=== PATIENT | female | born 1970 | race African-American/Black ===

== ENCOUNTER 2016-12-11 00:17 | Emergency (ER) | payer MEDICARE ==
[~2016-12-11] VITALS: Ht 167.6 cm; Wt 125.4 kg
[2016-12-11] MEDS ORDERED: LOSARTAN POT50 MG PO (01:58)
[2016-12-11] MEDS ORDERED: VICTOZA18 MG/3 ML SC (01:58)
[2016-12-11] MEDS ORDERED: HUMALOG100 UNIT/M SC (01:59)
[2016-12-11] MEDS ORDERED: BISOPROLOL PO (02:00)
[2016-12-11] MEDS ORDERED: LORTAB 10-325 M1 TAB PO (02:10)
[2016-12-11 02:29] VITALS: BP 183/99
== END 2016-12-11 02:45 | disposition home or self-care (01) ==
LOC: ED 00:17
DX: L02.12 Furuncle of neck (principal); E11.9 Type 2 diabetes mellitus without complications; I10 Essential (primary) hypertension; I25.2 Old myocardial infarction; Z95.5 Presence of coronary angioplasty implant and graft

== ENCOUNTER 2016-12-17 00:43 | Inpatient (IN) | payer MEDICARE ==
[~2016-12-17] VITALS: Ht 167.6 cm; Wt 126.0 kg
[~2016-12-17 00:43] MED LIST: BISOPROLOL PO; HUMALOG100 UNIT/M SC; LORTAB 10-325 M1 TAB PO; LOSARTAN POT50 MG PO; VICTOZA18 MG/3 ML SC
[2016-12-17 02:31] LABS: HEMOGLOBIN 11.3 g/dl (12.0-16.0); IMMATURE GRANULOCYTES 0.8 % (0.0-1.0); MEAN CORPUSCULAR HGB 28.3 pG CALC (26.0-32.0); MEAN CORPUSCULAR HGB CONC 33.2 g/L CALC (32.0-36.0); NEUT# 12.25 thou/uL (2.00-7.15); RED CELL DISTRI WIDTH 13.9 % (11.5-15.5)
[2016-12-17 02:37] LABS: ALBUMIN 3.1 g/dL (3.2-5.0); BILIRUBIN, TOTAL 0.4 mg/dL (0.0-1.4); CALCIUM 9.3 mg/dL (8.4-10.2); CREATININE 1.4 mg/dL (0.5-1.0); POTASSIUM 4.1 mmol/l (3.5-5.1); TOTAL PROTEIN 6.9 g/dL (6.3-8.2)
[2016-12-17 05:28] VITALS: BP 123/60
[2016-12-17 07:48] VITALS: BP 150/66
[2016-12-17 10:29] LABS: CHOLESTEROL HDL RATIO 6.3 (<4.4 (CALC)); MAGNESIUM 1.5 mg/dL (1.6-2.3)
[2016-12-17] MEDS ORDERED: GABAPENTIN800 MG PO (15:39)
[2016-12-17] MEDS ORDERED: TOPAMAX50 M1 PO (15:46)
[2016-12-17] MEDS ORDERED: KLONOPIN1 MG PO (15:48)
[2016-12-17] MEDS ORDERED: AMBIEN5 MG PO (15:50)
[2016-12-17] MEDS ORDERED: SEROQUEL100 MG PO (15:54)
[2016-12-17] MEDS ORDERED: CLOPIDOGREL75 MG PO (15:56)
[2016-12-17] MEDS ORDERED: CLONIDINE0.3 MG PO (16:03)
[2016-12-17] MEDS ORDERED: MOTRIN800 MG PO (16:07)
[2016-12-17] MEDS ORDERED: BACTRIM DS1 TAB PO (16:12)
[2016-12-17] MEDS ORDERED: LOSARTAN POT50 MG PO (16:14)
[2016-12-17 16:27] VITALS: BP 164/50
[2016-12-17] MEDS ORDERED: BISOPROL FUM5 MG PO (16:27)
[2016-12-17 19:07] VITALS: BP 160/70
[2016-12-18 04:10] VITALS: BP 135/74
[2016-12-18 05:54] LABS: HEMATOCRIT 31.4 % (37.0-47.0); HEMOGLOBIN 10.4 g/dl (12.0-16.0); IMMATURE GRANULOCYTES 1.3 % (0.0-1.0); MEAN CORPUSCULAR HGB 28.5 pG CALC (26.0-32.0); MEAN CORPUSCULAR HGB CONC 33.1 g/L CALC (32.0-36.0); NEUT# 9.3 thou/uL (2.00-7.15); RED BLOOD COUNT 3.65 mill/uL (4.20-5.60); RED CELL DISTRI WIDTH 14.2 % (11.5-15.5)
[2016-12-18 05:57] LABS: BUN 8 mg/dL (7-17); BUN/CREATININE RATIO 10 (12-20 (CALC)); CALCIUM 8.7 mg/dL (8.4-10.2); CARBON DIOXIDE 23 mmol/l (22-30); CHLORIDE 106 mmol/l (95-108); CREATININE 0.8 mg/dL (0.5-1.0); GFR > 60 ML/MIN (>=60 (CALC)); GFR FOR AFR.AMER. > 60 ML/MIN (>=60 (CALC)); GLUCOSE 221 mg/dL (65-105); MAGNESIUM 1.4 mg/dL (1.6-2.3); SODIUM 138 mmol/l (137-146)
[2016-12-18 05:58] LABS: ANION GAP 13 (6-22 (CALC)); POTASSIUM 4.2 mmol/l (3.5-5.1)
[2016-12-18 07:50] VITALS: BP 155/77
[2016-12-18 16:00] VITALS: BP 160/63
[2016-12-18 19:50] VITALS: BP 172/88
[2016-12-19 05:00] VITALS: BP 155/74
[2016-12-19 07:51] VITALS: BP 176/90
[2016-12-19 09:15] LABS: HEMATOCRIT 33.6 % (37.0-47.0); MEAN CELL VOLUME 86.8 fL CALC (80.0-100.0); MEAN CORPUSCULAR HGB 28.4 pG CALC (26.0-32.0); MEAN CORPUSCULAR HGB CONC 32.7 g/L CALC (32.0-36.0); RED BLOOD COUNT 3.87 mill/uL (4.20-5.60); RED CELL DISTRI WIDTH 14.1 % (11.5-15.5)
[2016-12-19 09:31] LABS: ANION GAP 11 (6-22 (CALC)); BUN 9 mg/dL (7-17); BUN/CREATININE RATIO 13 (12-20 (CALC)); CALCIUM 9.2 mg/dL (8.4-10.2); CARBON DIOXIDE 26 mmol/l (22-30); CHLORIDE 105 mmol/l (95-108); CREATININE 0.7 mg/dL (0.5-1.0); GFR > 60 ML/MIN (>=60 (CALC)); GFR FOR AFR.AMER. > 60 ML/MIN (>=60 (CALC)); GLUCOSE 293 mg/dL (65-105); POTASSIUM 4.5 mmol/l (3.5-5.1); SODIUM 137 mmol/l (137-146)
[2016-12-19 15:25] VITALS: BP 165/85
[2016-12-20 00:49] VITALS: BP 160/88
[2016-12-20 04:10] VITALS: BP 158/88
[2016-12-20 06:05] LABS: HEMATOCRIT 34.4 % (37.0-47.0); HEMOGLOBIN 10.9 g/dl (12.0-16.0); IMMATURE GRANULOCYTES 2.2 % (0.0-1.0); MEAN CELL VOLUME 87.5 fL CALC (80.0-100.0); MEAN CORPUSCULAR HGB 27.7 pG CALC (26.0-32.0); MEAN CORPUSCULAR HGB CONC 31.7 g/L CALC (32.0-36.0); NEUT# 5.08 thou/uL (2.00-7.15); RED BLOOD COUNT 3.93 mill/uL (4.20-5.60); RED CELL DISTRI WIDTH 13.9 % (11.5-15.5)
[2016-12-20 06:06] LABS: ALBUMIN 2.9 g/dL (3.2-5.0); ALKALINE PHOSPHATASE 138 u/l (38-126); ANION GAP 15 (6-22 (CALC)); BILIRUBIN, TOTAL 0.3 mg/dL (0.0-1.4); BUN 10 mg/dL (7-17); BUN/CREATININE RATIO 13 (12-20 (CALC)); CALCIUM 9.5 mg/dL (8.4-10.2); CARBON DIOXIDE 24 mmol/l (22-30); CHLORIDE 104 mmol/l (95-108); CREATININE 0.7 mg/dL (0.5-1.0); GFR > 60 ML/MIN (>=60 (CALC)); GFR FOR AFR.AMER. > 60 ML/MIN (>=60 (CALC)); GLUCOSE 244 mg/dL (65-105); POTASSIUM 4.8 mmol/l (3.5-5.1); SGOT/AST 12 u/l (14-36); SGPT/ALT 22 u/l (9-52); SODIUM 139 mmol/l (137-146); TOTAL PROTEIN 6.7 g/dL (6.3-8.2)
[2016-12-20 08:12] VITALS: BP 168/80
[2016-12-20 16:11] VITALS: BP 176/86
[2016-12-20 19:06] VITALS: BP 146/78
[2016-12-21] VITALS (7 sets, daily range): BP systolic 121–180; BP diastolic 60–95
[2016-12-21 05:23] LABS: HEMATOCRIT 33.1 % (37.0-47.0); HEMOGLOBIN 10.7 g/dl (12.0-16.0); IMMATURE GRANULOCYTES 2.1 % (0.0-1.0); MEAN CELL VOLUME 87.6 fL CALC (80.0-100.0); MEAN CORPUSCULAR HGB 28.3 pG CALC (26.0-32.0); MEAN CORPUSCULAR HGB CONC 32.3 g/L CALC (32.0-36.0); NEUT# 3.84 thou/uL (2.00-7.15); RED BLOOD COUNT 3.78 mill/uL (4.20-5.60)
[2016-12-21 05:34] LABS: ANION GAP 13 (6-22 (CALC)); BUN 14 mg/dL (7-17); BUN/CREATININE RATIO 17 (12-20 (CALC)); CALCIUM 9.3 mg/dL (8.4-10.2); CARBON DIOXIDE 26 mmol/l (22-30); CHLORIDE 105 mmol/l (95-108); CREATININE 0.8 mg/dL (0.5-1.0); GFR > 60 ML/MIN (>=60 (CALC)); GFR FOR AFR.AMER. > 60 ML/MIN (>=60 (CALC)); GLUCOSE 248 mg/dL (65-105); POTASSIUM 4.2 mmol/l (3.5-5.1); SODIUM 140 mmol/l (137-146)
[2016-12-22 03:25] VITALS: BP 135/80
[2016-12-22 06:11] LABS: HEMATOCRIT 34.8 % (37.0-47.0); HEMOGLOBIN 11.2 g/dl (12.0-16.0); IMMATURE GRANULOCYTES 1.9 % (0.0-1.0); MEAN CORPUSCULAR HGB CONC 32.2 g/L CALC (32.0-36.0); NEUT# 3.78 thou/uL (2.00-7.15); RED CELL DISTRI WIDTH 13.8 % (11.5-15.5)
[2016-12-22 06:29] LABS: ANION GAP 13 (6-22 (CALC)); BUN 12 mg/dL (7-17); BUN/CREATININE RATIO 19 (12-20 (CALC)); CALCIUM 9.4 mg/dL (8.4-10.2); CARBON DIOXIDE 27 mmol/l (22-30); CHLORIDE 105 mmol/l (95-108); CREATININE 0.7 mg/dL (0.5-1.0); GFR > 60 ML/MIN (>=60 (CALC)); GFR FOR AFR.AMER. > 60 ML/MIN (>=60 (CALC)); GLUCOSE 200 mg/dL (65-105); MAGNESIUM 1.6 mg/dL (1.6-2.3); POTASSIUM 4.3 mmol/l (3.5-5.1); SODIUM 141 mmol/l (137-146)
[2016-12-22 07:39] VITALS: BP 182/98
[2016-12-22 10:04] VITALS: BP 150/80
[2016-12-22 16:00] VITALS: BP 160/96
[2016-12-22 19:30] VITALS: BP 140/80
[2016-12-22 23:55] VITALS: BP 150/68
[2016-12-23 03:47] VITALS: BP 150/80
[2016-12-23 06:28] LABS: HEMATOCRIT 31.9 % (37.0-47.0); HEMOGLOBIN 10.3 g/dl (12.0-16.0); IMMATURE GRANULOCYTES 1.4 % (0.0-1.0); MEAN CELL VOLUME 87.6 fL CALC (80.0-100.0); MEAN CORPUSCULAR HGB 28.3 pG CALC (26.0-32.0); MEAN CORPUSCULAR HGB CONC 32.3 g/L CALC (32.0-36.0); NEUT# 4.26 thou/uL (2.00-7.15); RED BLOOD COUNT 3.64 mill/uL (4.20-5.60)
[2016-12-23 06:50] LABS: ANION GAP 13 (6-22 (CALC)); BUN 14 mg/dL (7-17); BUN/CREATININE RATIO 21 (12-20 (CALC)); CARBON DIOXIDE 27 mmol/l (22-30); CHLORIDE 105 mmol/l (95-108); CREATININE 0.7 mg/dL (0.5-1.0); GFR > 60 ML/MIN (>=60 (CALC)); GFR FOR AFR.AMER. > 60 ML/MIN (>=60 (CALC)); GLUCOSE 267 mg/dL (65-105); MAGNESIUM 1.4 mg/dL (1.6-2.3); POTASSIUM 4.1 mmol/l (3.5-5.1); SODIUM 141 mmol/l (137-146)
[2016-12-23 07:44] VITALS: BP 144/72
[2016-12-23 07:53] VITALS: BP 144/72
[2016-12-23] MEDS ORDERED: HYDROCO/APAP1 TA9 PO (10:21)
[2016-12-23] MEDS ORDERED: LYPHOCIN1 GM IV (10:21)
[2016-12-23] MEDS ORDERED: catapres PO (10:21)
[2016-12-23] MEDS ORDERED: HYDROCHLOROT25 MG PO (10:21)
[2016-12-23] MEDS ORDERED: LEVEMIR100 UNIT/M SC (10:21)
== END 2016-12-23 14:56 | disposition home or self-care (01) | DRG 638 ==
LOC: ED 00:43 → ED-I 01:36 → ED 03:54 → MS2 03:55
PROVIDERS: Emergency Medicine; Internal Medicine; Nurse Practitioner Family; ADMIT Internal Medicine; ATTEND Internal Medicine
PROC: 0H94XZX Drainage of Neck Skin, External Approach, Diagnostic (ICD-10-PCS; principal; 2016-12-17)
PROC: 0H94XZZ Drainage of Neck Skin, External Approach (ICD-10-PCS; 2016-12-17)
PROC: 02HV33Z Insertion of Infusion Device into Superior Vena Cava, Percutaneous Approach (ICD-10-PCS; 2016-12-22)
PROC: B518ZZA Fluoroscopy of Superior Vena Cava, Guidance (ICD-10-PCS; 2016-12-22)
DX: E11.628 Type 2 diabetes mellitus with other skin complications (principal); L02.11 Cutaneous abscess of neck; B95.61 Methicillin susceptible Staphylococcus aureus infection as the cause of diseases classified elsewhere; R78.81 Bacteremia; I10 Essential (primary) hypertension; L03.221 Cellulitis of neck; Z68.41 Body mass index [BMI] 40.0-44.9, adult; E78.5 Hyperlipidemia, unspecified; F32.9 Major depressive disorder, single episode, unspecified; E11.65 Type 2 diabetes mellitus with hyperglycemia; E11.69 Type 2 diabetes mellitus with other specified complication; E66.01 Morbid (severe) obesity due to excess calories; E83.42 Hypomagnesemia; I25.2 Old myocardial infarction; Z95.5 Presence of coronary angioplasty implant and graft; Z79.4 Long term (current) use of insulin; Z91.14 Patient's other noncompliance with medication regimen
CPT/HCPCS: J0692

== ENCOUNTER 2017-02-09 13:35 | Observation (INO) | payer MEDICARE ==
[~2017-02-09] VITALS: Ht 167.6 cm; Wt 129.0 kg
[~2017-02-09 13:35] MED LIST changes: +AMBIEN5 MG PO; +BACTRIM DS1 TAB PO; +BISOPROL FUM5 MG PO; +CLONIDINE0.3 MG PO; +CLOPIDOGREL75 MG PO; +GABAPENTIN800 MG PO; +HYDROCHLOROT25 MG PO; +HYDROCO/APAP1 TA9 PO; +KLONOPIN1 MG PO; +LEVEMIR100 UNIT/M SC; +LYPHOCIN1 GM IV; +MOTRIN800 MG PO; +SEROQUEL100 MG PO; +TOPAMAX50 M1 PO; +catapres PO
--- NOTE | 2017-02-09 13:43 | NUR ---
PT TAKEN STRAIGHT BACK TO ER ROOM 3 FOR AN EKG.
--- NOTE | 2017-02-09 14:00 | NUR ---
PT TRANSFERED TO ER ROOM 10 AFTER EKG. PT REFUSED WC, AMBULATED WITH A STEADY GAIT. PT DROVE SELF TO ER " IS WORKING". PT CHANGED SELF INTO GOWN. MONITORING VS. NURSE @ BEDSIDE.
[2017-02-09 14:20] LABS: HEMATOCRIT 36.7 % (37.0-47.0); IMMATURE GRANULOCYTES 1.2 % (0.0-1.0); MEAN CELL VOLUME 87.8 fL CALC (80.0-100.0); MEAN CORPUSCULAR HGB 28.7 pG CALC (26.0-32.0); MEAN CORPUSCULAR HGB CONC 32.7 g/L CALC (32.0-36.0); NEUT# 7.47 thou/uL (2.00-7.15); RED BLOOD COUNT 4.18 mill/uL (4.20-5.60); RED CELL DISTRI WIDTH 15.9 % (11.5-15.5)
[2017-02-09 14:40] LABS: ALBUMIN 3.5 g/dL (3.2-5.0); ALKALINE PHOSPHATASE 177 u/l (38-126); ANION GAP 13 (6-22 (CALC)); BILIRUBIN, TOTAL 0.6 mg/dL (0.0-1.4); BUN 22 mg/dL (7-17); BUN/CREATININE RATIO 27 (12-20 (CALC)); CARBON DIOXIDE 23 mmol/l (22-30); CHLORIDE 107 mmol/l (95-108); CREATININE 0.8 mg/dL (0.5-1.0); GFR > 60 ML/MIN (>=60 (CALC)); GFR FOR AFR.AMER. > 60 ML/MIN (>=60 (CALC)); GLUCOSE 334 mg/dL (65-105); POTASSIUM 4.6 mmol/l (3.5-5.1); SGOT/AST 20 u/l (14-36); SGPT/ALT 21 u/l (9-52); SODIUM 138 mmol/l (137-146)
[2017-02-09 14:52] LABS: MYOGLOBIN 39 ng/mL (0 - 62)
--- NOTE | 2017-02-09 15:45 | NUR ---
PT STATES SHE IS FEELING MUCH BETTER.
--- NOTE | 2017-02-09 15:46 | NUR ---
SBAR PRINTED TO FLOOR
--- NOTE | 2017-02-09 16:57 | NUR ---
TRIED CALLING REPORT, NO ANSWER
--- NOTE | 2017-02-09 17:00 | NUR ---
REPORT CALLED TO MOISES ABBOTT
--- NOTE | 2017-02-09 17:05 | NUR ---
Admission Note Report Given to: SBAR PRINTED TO FLOOR Transported by: X Wheelchair Stretcher Transported with: X Nurse Transporter X Patent IV O2 X Warehouse Lead
[2017-02-09 17:15] VITALS: BP 191/95
[2017-02-09] MEDS ORDERED: TRESIBA FL100 UNIT/M SC (17:51)
[2017-02-09] MEDS ORDERED: NOVOLOG100 UNIT/M SC (17:53)
--- NOTE | 2017-02-09 17:59 | NUR ---
PT ARRIVED TO FLOOR @ 1710 VIA WHEELCHAIR ACCOMPANIED BY ED STAFF. PT AMBULATING IN ROOM. STATES "GIRL JUST TELL ME IM GONNA GET DINNER." REPORTS MILD DULL PRESSURE TO LEFT SIDE OF CHEST. REPORTS SEVERE HEADACHE, 8 ON SCALE OF 0-10. PLAN OF CARE DISCUSSED. PT ORIENTED TO ROOM AND EQUIPMENT. REPORTING OF CONCERNS ENCOURAGED. BP 191/95. BRENT TRUJILLO NOTIFIED. NEW ORDERS AWAITING [facility] VERIFICATION. CALL LIGHT REVIEWED AND IN REACH. PT STATES UNDERSTANDING.
[2017-02-09 18:46] VITALS: BP 175/96
[2017-02-09 18:50] LABS: MAGNESIUM 1.7 mg/dL (1.6-2.3)
[2017-02-09 19:28] VITALS: BP 175/96
[2017-02-09 19:30] VITALS: BP 166/92
--- NOTE | 2017-02-09 19:30 | NUR ---
PATIENT RESTING IN BED-AWAKE ALERT AND ORIENTEDX3. BP IS DOWN AFTER RECIEVING APRESOLINE ON DAYSHIFT. TELE MONITORING DEVICE IN PLACE. HEP LOCK TO RIGHT AC INTACT AND APPEARS HEALTHY AT THIS TIME. CALL LIGHT IN REACH. WILL CONT TO MONITOR.
[2017-02-09 21:25] VITALS: BP 134/73
--- NOTE | 2017-02-09 23:54 | NUR ---
PATIENT APPEARS SLEEPING AT THIS TIME. CALL LIGHT IN REACH. WILL CONT TO MONITOR.
[2017-02-10] VITALS: BP 142/80
--- NOTE | 2017-02-10 04:00 | NUR ---
APPEARS SLEEPING AT THIS TIME. CALL LIGHT IN REACH. WILL CONT TO MONITOR.
[2017-02-10 05:26] VITALS: BP 145/85
[2017-02-10 06:37] LABS: HEMATOCRIT 34.7 % (37.0-47.0); HEMOGLOBIN 11.2 g/dl (12.0-16.0); MEAN CELL VOLUME 87.6 fL CALC (80.0-100.0); MEAN CORPUSCULAR HGB 28.3 pG CALC (26.0-32.0); MEAN CORPUSCULAR HGB CONC 32.3 g/L CALC (32.0-36.0); NEUT# 7.08 thou/uL (2.00-7.15); RED BLOOD COUNT 3.96 mill/uL (4.20-5.60); RED CELL DISTRI WIDTH 15.9 % (11.5-15.5)
[2017-02-10 06:56] LABS: ANION GAP 13 (6-22 (CALC)); BUN 25 mg/dL (7-17); BUN/CREATININE RATIO 26 (12-20 (CALC)); CALCIUM 9.2 mg/dL (8.4-10.2); CARBON DIOXIDE 23 mmol/l (22-30); CHLORIDE 107 mmol/l (95-108); CREATININE 0.9 mg/dL (0.5-1.0); GFR > 60 ML/MIN (>=60 (CALC)); GFR FOR AFR.AMER. > 60 ML/MIN (>=60 (CALC)); GLUCOSE 255 mg/dL (65-105); MAGNESIUM 1.8 mg/dL (1.6-2.3); POTASSIUM 4.6 mmol/l (3.5-5.1); SODIUM 139 mmol/l (137-146)
--- NOTE | 2017-02-10 07:00 | NUR ---
RECEIVED BEDSIDE REPORT FROM OSCAR DE LEON. RESTING IN BED WITH EYES CLSOED, AWAKENS EASILY. RESPS EVEN AND UNLABORED ON ROOM AIR, TELE MONITOR IN PLACE. DENIES PAIN OR DISCOMFORT. PLAN OF CARE DISCUSSED. SAFETY PRECAUTIONS REINFORCED. BED IN LOWEST POSITION WITH WHEELS LOCKED. CALL LIGHT WITHIN REACH. ENCOURAGED PT TO CALL FOR ANY NEEDS.
[2017-02-10 07:46] VITALS: BP 132/75
[2017-02-10 11:44] VITALS: BP 160/98
--- NOTE | 2017-02-10 12:25 | NUR ---
SITTING IN BED EATING LUNCH. RESPS EVEN AND UNLABORED ON ROOM AIR, TELE MONITOR IN PLACE. MEDICATED WITH TYLENOL PO FOR C/O 9/10 HEADACHE. PO FLUIDS OFFERED. CALL LIGHT WITHIN REACH. WILL CONTINUE TO MONITOR.
[2017-02-10 12:45] LABS: URINE BILIRUBIN - DIPSTICK NEGATIVE (NEGATIVE); URINE BLOOD DIPSTICK NEGATIVE (NEGATIVE); URINE CLARITY CLEAR; URINE COLOR YELLOW; URINE GLUCOSE - DIPSTICK >=1000 mg/dL (NEGATIVE); URINE KETONE NEGATIVE (NEGATIVE); URINE LEUK ESTERASE NEGATIVE (NEGATIVE); URINE NITRITE - DIPSTICK NEGATIVE (Negative); URINE PROTEIN - DIPSTICK Trace mg/dL (NEG-TRACE); URINE SPECIFIC GRAVITY 1.015; URINE UROBILINOGEN - DIPSTICK 0.2 E.U./dL (0.2)
--- NOTE | 2017-02-10 13:25 | NUR ---
DR LINARES IN WITH PT, NEW ORDERS RECEIVED.
[2017-02-10] MEDS ORDERED: HYDROCHLOROT25 MG PO (14:21)
[2017-02-10] MEDS ORDERED: catapres PO (14:21)
[2017-02-10] MEDS ORDERED: LIPITOR40 M1 PO (14:26)
[2017-02-10] MEDS ORDERED: ASPIRIN ADULT L81 M2 PO ×2 (14:27→14:50)
[2017-02-10 14:30] VITALS: BP 160/98
[2017-02-10] MEDS ORDERED: ISOSORBIDE MONO60 MG PO ×2 (14:50→14:52)
[2017-02-10] MEDS ORDERED: LIPITOR80 M1 PO (14:51)
--- NOTE | 2017-02-10 16:37 | NUR ---
Discharge instructions given. Patient verbalizes understanding of same. Discharged in stable condition via Wheelchair to Home with spouse. All belongings sent with pt.
== END 2017-02-10 16:35 | disposition home or self-care (01) ==
LOC: ED 13:35 → ED-I 14:23 → ED 15:31 → MS2 15:32
PROVIDERS: Emergency Medicine; Nurse Practitioner Family; ADMIT Internal Medicine; ATTEND Internal Medicine
DX: R07.89 Other chest pain (principal); I10 Essential (primary) hypertension; E11.65 Type 2 diabetes mellitus with hyperglycemia; F32.9 Major depressive disorder, single episode, unspecified; E78.5 Hyperlipidemia, unspecified; E66.01 Morbid (severe) obesity due to excess calories; I25.2 Old myocardial infarction; Z88.8 Allergy status to other drugs, medicaments and biological substances; Z91.14 Patient's other noncompliance with medication regimen; Z68.42 Body mass index [BMI] 45.0-49.9, adult; Z79.4 Long term (current) use of insulin; Z95.5 Presence of coronary angioplasty implant and graft

== ENCOUNTER 2017-12-15 14:18 | Emergency (ER) | payer MEDICARE, OTHER ==
[~2017-12-15] VITALS: Ht 167.6 cm; Wt 136.0 kg
[~2017-12-15 14:18] MED LIST changes: +ASPIRIN ADULT L81 M2 PO; +ISOSORBIDE MONO60 MG PO; +LIPITOR40 M1 PO; +LIPITOR80 M1 PO; +NOVOLOG100 UNIT/M SC; +TRESIBA FL100 UNIT/M SC
[2017-12-15 15:01] LABS: IMMATURE GRANULOCYTES 0.6 % (0.0-5.0); MEAN CELL VOLUME 88.9 fL CALC (80.0-100.0); MEAN CORPUSCULAR HGB 28.9 pG CALC (26.0-32.0); MEAN CORPUSCULAR HGB CONC 32.5 g/L CALC (32.0-36.0); NEUT# 6.82 thou/uL (2.00-7.15); RED BLOOD COUNT 4.6 mill/uL (4.20-5.60); RED CELL DISTRI WIDTH 14.4 % (11.5-15.5)
[2017-12-15 15:02] LABS: URINE BILIRUBIN - DIPSTICK NEGATIVE (NEGATIVE); URINE BLOOD DIPSTICK TRACE-INTACT (NEGATIVE); URINE COLOR YELLOW; URINE GLUCOSE - DIPSTICK >=1000 mg/dL (NEGATIVE); URINE KETONE NEGATIVE (NEGATIVE); URINE LEUK ESTERASE NEGATIVE (NEGATIVE); URINE NITRITE - DIPSTICK NEGATIVE (Negative); URINE PH 5.5 (4.5-8.0); URINE PROTEIN - DIPSTICK 100 mg/dL (NEG-TRACE); URINE UROBILINOGEN - DIPSTICK 0.2 E.U./dL (0.2)
[2017-12-15 15:03] LABS: HEMATOCRIT 40.9 % (37.0-47.0); HEMOGLOBIN 13.3 g/dl (12.0-16.0); URINE CLARITY CLEAR
[2017-12-15 15:04] LABS: URINE RBC 0-2 RBC/hpf (0-5); URINE SQUAMOUS EPITHELIAL CELL FEW EPI/hpf (0-FEW); URINE WBC 0-2 WBC/hpf (0-5)
[2017-12-15 15:16] LABS: ALBUMIN 3.4 g/dL (3.2-5.0); ANION GAP 15 (6-22 (CALC)); BILIRUBIN, TOTAL 0.3 mg/dL (0.0-1.4); BUN 27 mg/dL (7-17); BUN/CREATININE RATIO 27 (12-20 (CALC)); CARBON DIOXIDE 28 mmol/l (22-30); CHLORIDE 95 mmol/l (95-108); GFR 60 ML/MIN (>=60 (CALC)); GFR FOR AFR.AMER. > 60 ML/MIN (>=60 (CALC)); SGOT/AST 21 u/l (14-36); SGPT/ALT 25 u/l (9-52); SODIUM 134 mmol/l (137-146); TOTAL PROTEIN 7.2 g/dL (6.3-8.2)
[2017-12-15 15:28] LABS: ALKALINE PHOSPHATASE 272 u/l (38-126)
[2017-12-15 18:28] VITALS: BP 170/88
== END 2017-12-15 18:28 | disposition home or self-care (01) ==
LOC: ED 14:18
DX: E11.65 Type 2 diabetes mellitus with hyperglycemia (principal); I10 Essential (primary) hypertension; I25.2 Old myocardial infarction; Z79.4 Long term (current) use of insulin; Z91.14 Patient's other noncompliance with medication regimen; Z91.11 Patient's noncompliance with dietary regimen

== ENCOUNTER 2018-10-10 13:05 | Observation (INO) | payer OTHER, MEDICARE ==
[~2018-10-10] VITALS: Ht 167.6 cm; Wt 133.0 kg
[2018-10-10] MEDS ORDERED: ISOSORB MONO20 MG PO (13:26)
[2018-10-10 13:34] LABS: HEMATOCRIT 35.4 % (37.0-47.0); IMMATURE GRANULOCYTES 0.4 % (0.0-5.0); MEAN CELL VOLUME 89.4 fL CALC (80.0-100.0); MEAN CORPUSCULAR HGB 28.3 pG CALC (26.0-32.0); MEAN CORPUSCULAR HGB CONC 31.6 g/L CALC (32.0-36.0); NEUT# 5.1 thou/uL (2.00-7.15); RED BLOOD COUNT 3.96 mill/uL (4.20-5.60); RED CELL DISTRI WIDTH 14.9 % (11.5-15.5)
[2018-10-10 13:40] LABS: HEMOGLOBIN 11.2 g/dl (12.0-16.0)
[2018-10-10 13:54] LABS: ALBUMIN 3.4 g/dL (3.2-5.0); ALKALINE PHOSPHATASE 232 u/l (38-126); AMYLASE 51 u/l (30-110); ANION GAP 13 (6-22 (CALC)); BILIRUBIN, TOTAL 0.3 mg/dL (0.0-1.4); BUN 22 mg/dL (7-17); BUN/CREATININE RATIO 27 (12-20 (CALC)); CARBON DIOXIDE 28 mmol/l (22-30); CHLORIDE 100 mmol/l (95-108); CREATININE 0.8 mg/dL (0.5-1.0); GFR > 60 ML/MIN (>=60 (CALC)); GFR FOR AFR.AMER. > 60 ML/MIN (>=60 (CALC)); LIPASE 116 u/l (23-300); POTASSIUM 3.9 mmol/l (3.5-5.1); SGOT/AST 24 u/l (14-36); SODIUM 137 mmol/l (137-146); TOTAL PROTEIN 7.3 g/dL (6.3-8.2)
[2018-10-10 14:06] LABS: MYOGLOBIN 108 ng/mL (0 - 62)
[2018-10-10 16:58] VITALS: BP 162/81
[2018-10-10 17:44] VITALS: BP 181/82
[2018-10-10] MEDS ORDERED: HUMULIN R500 UNIT/M SC ×2 (18:36)
[2018-10-10 20:36] VITALS: BP 151/74
[2018-10-10 23:23] VITALS: BP 163/63
[2018-10-11 03:32] VITALS: BP 145/66
[2018-10-11 06:15] LABS: CHOLESTEROL HDL RATIO 3.7 (<4.4 (CALC)); MAGNESIUM 1.5 mg/dL (1.6-2.3)
[2018-10-11 07:53] VITALS: BP 159/72
[2018-10-11 11:15] VITALS: BP 167/75
== END 2018-10-11 13:32 | disposition home or self-care (01) | DRG 638 ==
LOC: ED 13:05 → ED-I 14:41 → ED 14:54 → MS2 14:55
PROVIDERS: Emergency Medicine; ADMIT Internal Medicine; ATTEND Internal Medicine
DX: E11.65 Type 2 diabetes mellitus with hyperglycemia (principal); Z68.41 Body mass index [BMI] 40.0-44.9, adult; I10 Essential (primary) hypertension; E11.69 Type 2 diabetes mellitus with other specified complication; E78.5 Hyperlipidemia, unspecified; I25.10 Atherosclerotic heart disease of native coronary artery without angina pectoris; I25.2 Old myocardial infarction; E66.01 Morbid (severe) obesity due to excess calories; T38.3X6A Underdosing of insulin and oral hypoglycemic [antidiabetic] drugs, initial encounter; Z91.128 Patient's intentional underdosing of medication regimen for other reason; Z79.4 Long term (current) use of insulin; Z95.5 Presence of coronary angioplasty implant and graft
CPT/HCPCS: G0378

== ENCOUNTER 2019-05-23 04:56 | Inpatient (IN) | payer OTHER, MEDICARE ==
[2019-05-23] VITALS (11 sets, daily range): BP systolic 151–205; BP diastolic 56–83
[~2019-05-23] VITALS: Ht 167.6 cm; Wt 140.2 kg
[~2019-05-23 04:56] MED LIST changes: +HUMULIN R500 UNIT/M SC; +ISOSORB MONO20 MG PO
[2019-05-23 05:54] LABS: IMMATURE GRANULOCYTES 1.1 % (0.0-5.0); MEAN CORPUSCULAR HGB 24.6 pG CALC (26.0-32.0); MEAN CORPUSCULAR HGB CONC 29.4 g/L CALC (32.0-36.0); NEUT# 6.96 thou/uL (2.00-7.15); RED BLOOD COUNT 3.13 mill/uL (4.20-5.60); RED CELL DISTRI WIDTH 16.6 % (11.5-15.5)
[2019-05-23 06:02] LABS: HEMOGLOBIN 7.7 g/dl (12.0-16.0)
[2019-05-23 06:03] LABS: HEMATOCRIT 26.2 % (37.0-47.0); MEAN CELL VOLUME 83.7 fL CALC (80.0-100.0)
[2019-05-23 06:13] LABS: ALBUMIN 3.1 g/dL (3.2-5.0); ALKALINE PHOSPHATASE 194 u/l (38-126); ANION GAP 9 (6-22 (CALC)); BILIRUBIN, TOTAL 0.3 mg/dL (0.0-1.4); BUN 26 mg/dL (7-17); BUN/CREATININE RATIO 27 (12-20 (CALC)); CARBON DIOXIDE 31 mmol/l (22-30); CHLORIDE 103 mmol/l (95-108); GFR 60 ML/MIN (>=60 (CALC)); GFR FOR AFR.AMER. > 60 ML/MIN (>=60 (CALC)); POTASSIUM 4.6 mmol/l (3.5-5.1); SGOT/AST 40 u/l (14-36); SODIUM 138 mmol/l (137-146); TOTAL PROTEIN 6.8 g/dL (6.3-8.2)
[2019-05-23 06:25] LABS: MYOGLOBIN 63 ng/mL (0 - 62)
[2019-05-23 09:49] LABS: URINE BILIRUBIN - DIPSTICK NEGATIVE (NEGATIVE); URINE BLOOD DIPSTICK TRACE-INTACT (NEGATIVE); URINE COLOR YELLOW; URINE GLUCOSE - DIPSTICK 500 mg/dL (NEGATIVE); URINE KETONE NEGATIVE (NEGATIVE); URINE LEUK ESTERASE NEGATIVE (NEGATIVE); URINE NITRITE - DIPSTICK NEGATIVE (Negative); URINE PH 6.5 (4.5-8.0); URINE PROTEIN - DIPSTICK 30 mg/dL (NEG-TRACE); URINE SPECIFIC GRAVITY 1.015; URINE UROBILINOGEN - DIPSTICK 0.2 E.U./dL (0.2)
[2019-05-23 09:58] LABS: URINE EPITHELIAL CELLS MODERATE EPI/hpf (0-FEW); URINE RBC 0-2 RBC/hpf (0-5)
[2019-05-23 11:27] LABS: CHOLESTEROL HDL RATIO 3.2 (<4.4 (CALC)); MAGNESIUM 1.5 mg/dL (1.6-2.3)
[2019-05-24 01:35] VITALS: BP 145/59
[2019-05-24 05:23] LABS: HEMATOCRIT 30.1 % (37.0-47.0); HEMOGLOBIN 9.4 g/dl (12.0-16.0); IMMATURE GRANULOCYTES 1.8 % (0.0-5.0); MEAN CELL VOLUME 82.2 fL CALC (80.0-100.0); MEAN CORPUSCULAR HGB 25.7 pG CALC (26.0-32.0); MEAN CORPUSCULAR HGB CONC 31.2 g/L CALC (32.0-36.0); NEUT# 13.31 thou/uL (2.00-7.15); RED BLOOD COUNT 3.66 mill/uL (4.20-5.60); RED CELL DISTRI WIDTH 16.1 % (11.5-15.5)
[2019-05-24 05:30] VITALS: BP 156/62
[2019-05-24 05:42] LABS: BUN 30 mg/dL (7-17); BUN/CREATININE RATIO 29 (12-20 (CALC)); CHLORIDE 102 mmol/l (95-108); GFR 60 ML/MIN (>=60 (CALC)); GFR FOR AFR.AMER. > 60 ML/MIN (>=60 (CALC)); MAGNESIUM 1.6 mg/dL (1.6-2.3); SODIUM 134 mmol/l (137-146)
[2019-05-24 05:46] LABS: ANION GAP 13 (6-22 (CALC)); CARBON DIOXIDE 24 mmol/l (22-30)
[2019-05-24 08:00] VITALS: BP 143/71
[2019-05-24 11:01] VITALS: BP 184/73
[2019-05-24 15:35] VITALS: BP 138/60
[2019-05-24] MEDS ORDERED: FERR SULFATE325 MG PO (18:00)
[2019-05-24] MEDS ORDERED: MEDDOSEPAK PO ×2 (18:01)
[2019-05-24] MEDS ORDERED: LEVAQUIN750 MG PO (18:01)
== END 2019-05-24 19:00 | disposition home or self-care (01) | DRG 202 ==
LOC: ED 04:56 → ED-I 05:31 → ED 07:27 → MS2 07:28 → ED-I 07:28 → MS2 09:15
PROVIDERS: Emergency Medicine; Nurse Practitioner Family; ADMIT Internal Medicine; ATTEND Internal Medicine
PROC: 30233N1 Transfusion of Nonautologous Red Blood Cells into Peripheral Vein, Percutaneous Approach (ICD-10-PCS; principal; 2019-05-23)
PROC: 30233N1 Transfusion of Nonautologous Red Blood Cells into Peripheral Vein, Percutaneous Approach (ICD-10-PCS; 2019-05-23)
DX: J40 Bronchitis, not specified as acute or chronic (principal); Z68.43 Body mass index [BMI] 50.0-59.9, adult; D62 Acute posthemorrhagic anemia; I11.0 Hypertensive heart disease with heart failure; I50.9 Heart failure, unspecified; I16.0 Hypertensive urgency; E11.65 Type 2 diabetes mellitus with hyperglycemia; N92.0 Excessive and frequent menstruation with regular cycle; E66.01 Morbid (severe) obesity due to excess calories; G47.33 Obstructive sleep apnea (adult) (pediatric); E78.5 Hyperlipidemia, unspecified; I25.2 Old myocardial infarction; I25.10 Atherosclerotic heart disease of native coronary artery without angina pectoris; Z79.02 Long term (current) use of antithrombotics/antiplatelets; Z79.82 Long term (current) use of aspirin; Z95.5 Presence of coronary angioplasty implant and graft; Z79.4 Long term (current) use of insulin
CPT/HCPCS: J1756; P9016

== ENCOUNTER 2020-01-01 01:45 | Emergency (ER) | payer OTHER, MEDICARE ==
[~2020-01-01] VITALS: Ht 167.6 cm; Wt 100.0 kg
[~2020-01-01 01:45] MED LIST changes: +FERR SULFATE325 MG PO; +LEVAQUIN750 MG PO; +MEDDOSEPAK PO
[2020-01-01] MEDS ORDERED: PERCOCET 5/325M1 TAB PO (04:05)
[2020-01-01 04:32] VITALS: BP 151/84
== END 2020-01-01 04:32 | disposition home or self-care (01) | DRG 948 ==
LOC: ED 01:45
DX: G89.18 Other acute postprocedural pain (principal); E11.9 Type 2 diabetes mellitus without complications; I10 Essential (primary) hypertension; I25.2 Old myocardial infarction; Z95.5 Presence of coronary angioplasty implant and graft; F41.9 Anxiety disorder, unspecified; E66.01 Morbid (severe) obesity due to excess calories; Z79.4 Long term (current) use of insulin; Z90.710 Acquired absence of both cervix and uterus

== ENCOUNTER 2020-12-15 19:14 | Emergency (ER) | payer OTHER, MEDICARE ==
[~2020-12-15] VITALS: Ht 167.6 cm; Wt 131.0 kg
[~2020-12-15 19:14] MED LIST changes: +PERCOCET 5/325M1 TAB PO
[2020-12-15 21:00] LABS: HEMATOCRIT 34.6 % (37.0-47.0); HEMOGLOBIN 10.5 g/dl (12.0-16.0); IMMATURE GRANULOCYTES 0.6 % (0.0-5.0); MEAN CELL VOLUME 90.6 fL CALC (80.0-100.0); MEAN CORPUSCULAR HGB 27.5 pG CALC (26.0-32.0); MEAN CORPUSCULAR HGB CONC 30.3 g/dL CAL (32.0-36.0); NEUT# 7.41 thou/uL (2.00-7.15); RED BLOOD COUNT 3.82 mill/uL (4.20-5.60); RED CELL DISTRI WIDTH 16.1 % (11.5-15.5)
[2020-12-15 21:14] LABS: ALBUMIN 3.2 g/dL (3.2-5.0); ALKALINE PHOSPHATASE 200 u/l (38-126); AMYLASE 140 u/l (30-110); BILIRUBIN, TOTAL 0.2 mg/dL (0.0-1.4); BUN 41 mg/dL (7-17); BUN/CREATININE RATIO 27 (12-20 (CALC)); CHLORIDE 98 mmol/l (95-108); CREATININE 1.5 mg/dL (0.5-1.0); GFR 37 ML/MIN (>=60 (CALC)); GFR FOR AFR.AMER. 45 ML/MIN (>=60 (CALC)); LIPASE 318 u/l (23-300); SGOT/AST 21 u/l (14-36); SODIUM 135 mmol/l (137-146); TOTAL PROTEIN 6.9 g/dL (6.3-8.2)
[2020-12-15 21:15] LABS: ANION GAP 12 (6-22 (CALC)); CARBON DIOXIDE 29 mmol/l (22-30); POTASSIUM 3.8 mmol/l (3.5-5.1)
[2020-12-15 21:26] LABS: MYOGLOBIN 110 ng/mL (0 - 62)
[2020-12-15 23:41] LABS: URINE BILIRUBIN - DIPSTICK NEGATIVE (NEGATIVE); URINE COLOR YELLOW; URINE GLUCOSE - DIPSTICK >=1000 mg/dL (NEGATIVE); URINE KETONE NEGATIVE (NEGATIVE); URINE PROTEIN - DIPSTICK 100 mg/dL (NEG-TRACE); URINE UROBILINOGEN - DIPSTICK 0.2 E.U./dL (0.2)
[2020-12-15 23:50] LABS: URINE LEUK ESTERASE SMALL (NEGATIVE); URINE NITRITE - DIPSTICK NEGATIVE (Negative)
[2020-12-15 23:51] LABS: URINE BLOOD DIPSTICK NEGATIVE (NEGATIVE)
[2020-12-15 23:53] LABS: URINE BACTERIA MODERATE hpf; URINE EPITHELIAL CELLS MODERATE EPI/hpf (0-FEW)
[2020-12-15] MEDS ORDERED: CIPROFLOXACN500 MG PO (23:54)
[2020-12-16 00:14] VITALS: BP 119/59
== END 2020-12-16 00:14 | disposition home or self-care (01) | DRG 638 ==
LOC: ED 19:14
PROVIDERS: Emergency Medicine
DX: E11.649 Type 2 diabetes mellitus with hypoglycemia without coma (principal); N39.0 Urinary tract infection, site not specified; I10 Essential (primary) hypertension; I25.2 Old myocardial infarction; E66.01 Morbid (severe) obesity due to excess calories; F41.9 Anxiety disorder, unspecified; Z95.5 Presence of coronary angioplasty implant and graft; Z79.4 Long term (current) use of insulin; Z96.41 Presence of insulin pump (external) (internal); Z20.822 Contact with and (suspected) exposure to COVID-19

== ENCOUNTER 2021-08-21 21:50 | Observation (INO) | payer OTHER, MEDICARE ==
[~2021-08-21] VITALS: Ht 167.6 cm; Wt 126.0 kg
[~2021-08-21 21:50] MED LIST changes: +CIPROFLOXACN500 MG PO; +COZAAR100 MG PO
--- NOTE | 2021-08-21 21:50 | NUR ---
PT ARRIVED VIA EMS
--- NOTE | 2021-08-21 22:01 | NUR ---
REPORT RECEIVED FROM ANTOINE DE LEON.
[2021-08-21 22:16] VITALS: BP 124/72
--- NOTE | 2021-08-21 22:26 | NUR ---
PT SPOUSE AT BEDSIDE, PT ON MONITOR RECEIVING IV FLUIDS, AWAITING CT SCAN AND LAB RSULTS. WILL CONT TO MONITOR.
[2021-08-21 22:30] VITALS: BP 115/69
[2021-08-21 22:45] VITALS: BP 140/76
[2021-08-21 23:14] LABS: URINE BILIRUBIN - DIPSTICK NEGATIVE (NEGATIVE); URINE BLOOD DIPSTICK NEGATIVE (NEGATIVE); URINE COLOR YELLOW; URINE GLUCOSE - DIPSTICK 250 mg/dL (NEGATIVE); URINE KETONE NEGATIVE (NEGATIVE); URINE LEUK ESTERASE NEGATIVE (NEGATIVE); URINE PROTEIN - DIPSTICK NEGATIVE (NEG-TRACE); URINE UROBILINOGEN - DIPSTICK 0.2 E.U./dL (0.2)
[2021-08-21 23:18] LABS: URINE NITRITE - DIPSTICK NEGATIVE (Negative)
[2021-08-21 23:19] LABS: HEMATOCRIT 35.2 % (37.0-47.0); HEMOGLOBIN 10.7 g/dl (12.0-16.0); IMMATURE GRANULOCYTES 0.6 % (0.0-5.0); MEAN CELL VOLUME 91.4 fL CALC (80.0-100.0); MEAN CORPUSCULAR HGB 27.8 pG CALC (26.0-32.0); MEAN CORPUSCULAR HGB CONC 30.4 g/dL CAL (32.0-36.0); NEUT# 5.88 thou/uL (2.00-7.15); RED BLOOD COUNT 3.85 mill/uL (4.20-5.60); RED CELL DISTRI WIDTH 17.2 % (11.5-15.5)
[2021-08-21 23:20] VITALS: BP 130/86
--- NOTE | 2021-08-21 23:22 | NUR ---
PT IN ROOM ON MONITOR AWAITING CT SCAN AND LAB RESULTS. PT ALSO COMPLAINS OF HEADACHE PAIN 01/05. PROVIDER NOTIFIED AND MED ORDERS RECEIVED. WILL CONT TO MONITOR.
[2021-08-21 23:30] VITALS: BP 142/59
[2021-08-21 23:37] LABS: ALBUMIN 3.6 g/dL (3.2-5.0); ALKALINE PHOSPHATASE 104 u/l (38-126); ANION GAP 13 (6-22 (CALC)); BUN 60 mg/dL (7-17); BUN/CREATININE RATIO 27 (12-20 (CALC)); CARBON DIOXIDE 29 mmol/l (22-30); CHLORIDE 100 mmol/l (95-108); CREATININE 2.2 mg/dL (0.5-1.0); GFR FOR AFR.AMER. 29 ML/MIN (>=60 (CALC)); GFR OTHER RACES 24 ML/MIN (>=60 (CALC)); POTASSIUM 3.6 mmol/l (3.5-5.1); SGOT/AST 24 u/l (14-36); SODIUM 138 mmol/l (137-146); TOTAL PROTEIN 7.4 g/dL (6.3-8.2)
[2021-08-21 23:40] LABS: BILIRUBIN, TOTAL 0.3 mg/dL (0.0-1.4)
[2021-08-21 23:49] LABS: MYOGLOBIN 86 ng/mL (0 - 62)
--- NOTE | 2021-08-21 23:56 | NUR ---
PT TO BE ADMITTED
[2021-08-22] VITALS (9 sets, daily range): BP systolic 142–178; BP diastolic 54–92
--- NOTE | 2021-08-22 00:24 | NUR ---
PT IN ROOM ON MONITOR RECEIVING IV FLUIDS WITH SPOUSE AT BEDSIDE, AWAITING RESULTS OF COVID-19 TEST AND ADMISSION PLACEMENT.
--- NOTE | 2021-08-22 00:56 | NUR ---
BELONGINGS LIST COMPLETED.
--- NOTE | 2021-08-22 01:08 | NUR ---
PT IN ROOM ON TELE RECEIVING IV FLUIDS, AWAITING ADMISSION TO [facility]. WILL CONT TO [facility].
--- NOTE | 2021-08-22 01:14 | NUR ---
REPORT CALLED TO DENISE DE LEON.
--- NOTE | 2021-08-22 01:19 | NUR ---
PT ADMITTED TO [facility], PT TRANSPORTED VIA WHEEL CHAIR TO [facility] BY ED STAFF.
--- NOTE | 2021-08-22 01:22 | NUR ---
PATIENT ADMITTED TO ROOM 273 VIA WC. AMBULATED SELF TO ROOM BED. ALERT AND ORIENTED. ABLE TO MAKE NEEDS KNOWN. ASSESSMENT COMPLETE. SKIN CHECK DONE. NO SKIN ISSUES NOTED. PATIENT GAVE SELF BED BATH PER HER REQUEST WITH FERRY OPERATOR PRESENT. DENIES ANY PAIN. NO DISTRESS. HAS DEXCOM BLOOD SUGAR MONITOR TO LOWER LEFT ABD. FERRY OPERATOR DID CHECK PATIENTS BS WHEN SHE GOT UP TO ROOM, BS 137. PATIENT ASKED FOR A SNACK AND TOLERATED WELL. ORIENTED PATIENT TO ROOM, CALL LIGHT, AND SURRUNDINGS. ECOURAGED PATIENT TO CALL WHEN ASSISTANCE NEEDED FOR SAFETY PURPOSES. NEURO CHECK DONE AND WNL. PATIENT CHANGED SELF IN HER HOME [facility]. PATIENT DID NOT LIKE THE HOSPITAL GOWN. BED IN LOW POSITION, CALL LIGHT IN REACH.
--- NOTE | 2021-08-22 04:04 | NUR ---
PATIENT OBSERVED LAYING ON HER RIGHT SIDE. COMPLAINED OF PAIN TO THE FOREHEAD. RECEIVED PRN ORDER FROM ON [place]OMARA PROVIDER. PATIENT RECEIVED PRN PAIN MEDICATION PER DOCTORS ORDER.
--- NOTE | 2021-08-22 06:10 | NUR ---
NETWORK SECURITY ADMINISTRATOR PROVIDER NOTIFIED OF PATIENTS IV INFILTRATING TO LEFT AC. PROVIDER OKAYED FLUIDS TO BE HELD UNTIL ANOTHER SITE IS ESTABLISHED. WILL INFORM NEXT SHIFT NURSE. WARM COMPRESS APPLIED TO LEFT UPPER ARM. ARM ELEVATED TO HELP DECREASE ANY FLUID SWELLING. DENIES ANY PAIN. WILL CONTINUE TO MONITOR.
[2021-08-22 06:18] LABS: HEMOGLOBIN 11.2 g/dl (12.0-16.0); IMMATURE GRANULOCYTES 0.3 % (0.0-5.0); MEAN CORPUSCULAR HGB 27.9 pG CALC (26.0-32.0); MEAN CORPUSCULAR HGB CONC 30.3 g/dL CAL (32.0-36.0); NEUT# 5.33 thou/uL (2.00-7.15); RED BLOOD COUNT 4.02 mill/uL (4.20-5.60); RED CELL DISTRI WIDTH 17.1 % (11.5-15.5)
[2021-08-22 06:42] LABS: CREATININE 1.9 mg/dL (0.5-1.0); POTASSIUM 3.6 mmol/l (3.5-5.1)
--- NOTE | 2021-08-22 07:00 | NUR ---
RECEIVE REPORT FROM DENISE DE LEON.
--- NOTE | 2021-08-22 08:19 | NUR ---
PATIENT ALERT AND ORIENTED X3. REFER PAIN AT THIS TIME. MEDICATIONS DONE. PATIEN NO IV SIZE AT THE MOMENT OF RECEIVING THR REPORT. TREATED ONCE, COULD NOT REFER PATIENT NEEDS MIDLINE AT EACH HOSPITALIZATION. PATIENT IS EDUCATED ABOUD MEDICATIOS AND NURSING PLAN FOR TODAY. PATIENT REFER UNDERSTAND.
--- NOTE | 2021-08-22 09:42 | NUR ---
SPEECH PATHOLOGY-- PT SCREENED BY GROOVER RUNNER. NO NEED FOR EVALUATION OR INTERVENTION AT THIS TIME.
[2021-08-22] MEDS ORDERED: TRAZODONE100 MG PO (11:47)
[2021-08-22] MEDS ORDERED: LIPITOR80 M1 PO (11:48)
[2021-08-22] MEDS ORDERED: METFORMIN HCL500 M2 PO (11:49)
[2021-08-22] MEDS ORDERED: HALDOL1 M1 PO (11:50)
[2021-08-22] MEDS ORDERED: VITAMIN D350000 UNIT PO (11:54)
[2021-08-22] MEDS ORDERED: FENOFIBRATE145 MG PO (11:55)
--- NOTE | 2021-08-22 12:01 | NUR ---
PATIENT STABLE AT THIS TIME. RESTING IN BED
[2021-08-22] MEDS ORDERED: POTASSIUM CHLO10 ME3 PO (12:04)
[2021-08-22] MEDS ORDERED: METOLAZONE5 MG PO (12:04)
--- NOTE | 2021-08-22 14:16 | NUR ---
PATIENT IS DISCHARGED STABLE AT HIS TIME. PATIENT IS EDUCATED ABOUD MEDICATIONS AT HOME AND DOCTOR FOLLOW UP. PATIENT REFER UNDERSTAND.
[2021-09-08] MEDS ORDERED: FARXIGA10 MG MT (12:46)
== END 2021-08-22 14:14 | disposition home or self-care (01) | DRG 641 ==
LOC: ED 21:50 → ED-I 08-22 00:06 → ED 08-22 00:23 → MS2 08-22 00:24
PROVIDERS: Emergency Medicine; ADMIT Hospitalist; ATTEND Hospitalist
DX: E86.0 Dehydration (principal); N17.9 Acute kidney failure, unspecified; Z68.41 Body mass index [BMI] 40.0-44.9, adult; S00.83XA Contusion of other part of head, initial encounter; I10 Essential (primary) hypertension; E11.9 Type 2 diabetes mellitus without complications; I25.2 Old myocardial infarction; G47.33 Obstructive sleep apnea (adult) (pediatric); E78.5 Hyperlipidemia, unspecified; F32.A Depression, unspecified; F41.9 Anxiety disorder, unspecified; E66.01 Morbid (severe) obesity due to excess calories; W19.XXXA Unspecified fall, initial encounter; Z79.4 Long term (current) use of insulin; Z95.5 Presence of coronary angioplasty implant and graft; Z20.822 Contact with and (suspected) exposure to COVID-19
CPT/HCPCS: G0378

== ENCOUNTER 2021-09-07 15:00 | Observation (INO) | payer OTHER, MEDICARE ==
[~2021-09-07] VITALS: Ht 167.6 cm; Wt 121.0 kg
[2021-09-07] VITALS (23 sets, daily range): BP systolic 73–160; BP diastolic 55–108
[~2021-09-07 15:00] MED LIST changes: +FENOFIBRATE145 MG PO; +HALDOL1 M1 PO; +METFORMIN HCL500 M2 PO; +METOLAZONE5 MG PO; +POTASSIUM CHLO10 ME3 PO; +TRAZODONE100 MG PO; +VITAMIN D350000 UNIT PO
[2021-09-07 15:50] LABS: HEMATOCRIT 36.5 % (37.0-47.0); HEMOGLOBIN 11.1 g/dl (12.0-16.0); IMMATURE GRANULOCYTES 0.6 % (0.0-5.0); MEAN CELL VOLUME 90.1 fL CALC (80.0-100.0); MEAN CORPUSCULAR HGB 27.4 pG CALC (26.0-32.0); MEAN CORPUSCULAR HGB CONC 30.4 g/dL CAL (32.0-36.0); NEUT# 6.83 thou/uL (2.00-7.15); RED BLOOD COUNT 4.05 mill/uL (4.20-5.60); RED CELL DISTRI WIDTH 16.9 % (11.5-15.5)
[2021-09-07 16:03] LABS: ALBUMIN 3.8 g/dL (3.2-5.0); BILIRUBIN, TOTAL 0.4 mg/dL (0.0-1.4); CREATININE 2.6 mg/dL (0.5-1.0); POTASSIUM 3.8 mmol/l (3.5-5.1); TOTAL PROTEIN 8.1 g/dL (6.3-8.2)
[2021-09-07 19:41] LABS: URINE BILIRUBIN - DIPSTICK NEGATIVE (NEGATIVE); URINE BLOOD DIPSTICK NEGATIVE (NEGATIVE); URINE COLOR YELLOW; URINE GLUCOSE - DIPSTICK NEGATIVE (NEGATIVE); URINE KETONE NEGATIVE (NEGATIVE); URINE PROTEIN - DIPSTICK NEGATIVE (NEG-TRACE); URINE SPECIFIC GRAVITY <=1.005; URINE UROBILINOGEN - DIPSTICK 0.2 E.U./dL (0.2)
[2021-09-07 19:42] LABS: URINE LEUK ESTERASE SMALL (NEGATIVE); URINE NITRITE - DIPSTICK NEGATIVE (Negative)
[2021-09-07 19:54] LABS: URINE RBC 0-2 RBC/hpf (0-5); URINE SQUAMOUS EPITHELIAL CELL MODERATE EPI/hpf (0-FEW)
[2021-09-08] VITALS (8 sets, daily range): BP systolic 76–144; BP diastolic 44–72
[2021-09-08 05:55] LABS: HEMATOCRIT 35.6 % (37.0-47.0); MEAN CELL VOLUME 91.5 fL CALC (80.0-100.0); MEAN CORPUSCULAR HGB 28.3 pG CALC (26.0-32.0); MEAN CORPUSCULAR HGB CONC 30.9 g/dL CAL (32.0-36.0); RED BLOOD COUNT 3.89 mill/uL (4.20-5.60); RED CELL DISTRI WIDTH 17.2 % (11.5-15.5)
[2021-09-08 06:20] LABS: CREATININE 2.2 mg/dL (0.5-1.0); MAGNESIUM 1.6 mg/dL (1.6-2.3); POTASSIUM 3.8 mmol/l (3.5-5.1)
[2021-09-08] MEDS ORDERED: CLONIDINE0.2 MG PO (12:19)
[2021-09-08] MEDS ORDERED: TRAZODONE100 MG PO (12:22)
[2021-09-08] MEDS ORDERED: POTASSIUM CHLO10 ME3 PO (12:42)
[2021-09-08] MEDS ORDERED: COZAAR100 MG PO (12:45)
[2021-09-08] MEDS ORDERED: CITALOPRAM20 M1 MT (12:45)
[2021-09-08] MEDS ORDERED: FARXIGA10 MG PO (12:46)
[2021-09-08] MEDS ORDERED: VENLAFAXINE150 MG PO (12:47)
[2021-09-08] MEDS ORDERED: VENLAFAXINE75 M2 PO (12:49)
[2021-09-08] MEDS ORDERED: BISOPROLOL FUMA10 MG MT (12:51)
[2021-09-08] MEDS ORDERED: METOLAZONE5 MG PO (12:51)
[2021-09-08] MEDS ORDERED: HALDOL1 M1 PO (12:53)
[2021-09-08] MEDS ORDERED: FERRAPLUS 90 PO (12:55)
[2021-09-08] MEDS ORDERED: HUMULIN R500 UNIT/M ×3 (13:19→13:25)
[2021-09-08] MEDS ORDERED: OZEMPIC4 MG (13:31)
[2021-09-08] MEDS ORDERED: VITAMIN A8000 UNI1 PO (13:35)
[2021-09-08] MEDS ORDERED: VITAMIN C + PO (16:45)
[2021-09-08] MEDS ORDERED: VITAMIN B 12100 MCG PO (16:46)
[2021-09-08] MEDS ORDERED: VITAMIN E100 UNI2 PO (16:47)
[2021-09-09] VITALS (9 sets, daily range): BP systolic 98–145; BP diastolic 59–77
[2021-09-09 04:29] LABS: HEMATOCRIT 35.1 % (37.0-47.0); HEMOGLOBIN 10.8 g/dl (12.0-16.0); IMMATURE GRANULOCYTES 0.9 % (0.0-5.0); MEAN CELL VOLUME 90.7 fL CALC (80.0-100.0); MEAN CORPUSCULAR HGB 27.9 pG CALC (26.0-32.0); MEAN CORPUSCULAR HGB CONC 30.8 g/dL CAL (32.0-36.0); NEUT# 5.65 thou/uL (2.00-7.15); RED BLOOD COUNT 3.87 mill/uL (4.20-5.60); RED CELL DISTRI WIDTH 16.8 % (11.5-15.5)
[2021-09-09 04:47] LABS: ALBUMIN 3.3 g/dL (3.2-5.0); CREATININE 2.1 mg/dL (0.5-1.0); MAGNESIUM 1.6 mg/dL (1.6-2.3); POTASSIUM 4.3 mmol/l (3.5-5.1)
[2021-09-10 00:15] VITALS: BP 131/75
[2021-09-10 04:15] VITALS: BP 168/80
[2021-09-10 05:23] VITALS: BP 142/80
[2021-09-10 06:35] LABS: HEMATOCRIT 34.1 % (37.0-47.0); HEMOGLOBIN 10.5 g/dl (12.0-16.0); IMMATURE GRANULOCYTES 0.6 % (0.0-5.0); MEAN CELL VOLUME 90.9 fL CALC (80.0-100.0); MEAN CORPUSCULAR HGB CONC 30.8 g/dL CAL (32.0-36.0); NEUT# 4.68 thou/uL (2.00-7.15); RED BLOOD COUNT 3.75 mill/uL (4.20-5.60); RED CELL DISTRI WIDTH 16.8 % (11.5-15.5)
[2021-09-10 06:45] LABS: ALBUMIN 3.1 g/dL (3.2-5.0); CREATININE 1.9 mg/dL (0.5-1.0); MAGNESIUM 1.6 mg/dL (1.6-2.3); POTASSIUM 4.1 mmol/l (3.5-5.1)
[2021-09-10 07:34] VITALS: BP 180/79
[2021-09-10 08:00] VITALS: BP 141/71
[2021-09-10 08:48] VITALS: BP 141/71
== END 2021-09-10 13:00 | disposition home or self-care (01) | DRG 312 ==
LOC: ED 15:00 → ED-I 20:18 → ED 20:30 → MS2 20:31
PROVIDERS: Family Medicine; Nurse Practitioner; ADMIT Hospitalist; ATTEND Hospitalist
DX: I95.1 Orthostatic hypotension (principal); N39.0 Urinary tract infection, site not specified; Z68.41 Body mass index [BMI] 40.0-44.9, adult; N17.9 Acute kidney failure, unspecified; I13.0 Hypertensive heart and chronic kidney disease with heart failure and stage 1 through stage 4 chronic kidney disease, or unspecified chronic kidney disease; E86.0 Dehydration; I50.9 Heart failure, unspecified; E11.22 Type 2 diabetes mellitus with diabetic chronic kidney disease; N18.9 Chronic kidney disease, unspecified; E66.01 Morbid (severe) obesity due to excess calories; E11.69 Type 2 diabetes mellitus with other specified complication; E78.5 Hyperlipidemia, unspecified; F41.9 Anxiety disorder, unspecified; F32.A Depression, unspecified; G47.33 Obstructive sleep apnea (adult) (pediatric); I25.2 Old myocardial infarction; Z79.84 Long term (current) use of oral hypoglycemic drugs; Z79.4 Long term (current) use of insulin; Z95.5 Presence of coronary angioplasty implant and graft; Z20.822 Contact with and (suspected) exposure to COVID-19
CPT/HCPCS: G0378; J1956

== ENCOUNTER 2022-05-27 16:56 | Emergency (ER) | payer OTHER, MEDICARE ==
[~2022-05-27] VITALS: Ht 167.6 cm; Wt 128.6 kg
[2022-05-27] VITALS (11 sets, daily range): BP systolic 100–163; BP diastolic 73–99
[~2022-05-27 16:56] MED LIST changes: +BISOPROLOL FUMA10 MG MT; +CITALOPRAM20 M1 MT; +CLONIDINE0.2 MG PO; +FARXIGA10 MG PO; +FERRAPLUS 90 PO; +HUMULIN R500 UNIT/M; +OZEMPIC4 MG; +VENLAFAXINE150 MG PO; +VENLAFAXINE75 M2 PO; +VITAMIN A8000 UNI1 PO; +VITAMIN B 12100 MCG PO; +VITAMIN C + PO; +VITAMIN E100 UNI2 PO
[2022-05-27 19:17] LABS: BASO% 0.2 % (0-3); EOS% 2.3 % (0-8); HEMATOCRIT 39.8 % (37.0-47.0); HEMOGLOBIN 11.9 g/dl (12.0-16.0); IMMATURE GRANULOCYTES 0.9 % (0.0-5.0); LYMPH% 41.1 % (15-41); MEAN CELL VOLUME 89.4 fL CALC (80.0-100.0); MEAN CORPUSCULAR HGB 26.7 pG CALC (26.0-32.0); MEAN CORPUSCULAR HGB CONC 29.9 g/dL CAL (32.0-36.0); MONO% 5.6 % (2-13); NEUT# 8.09 thou/uL (2.00-7.15); NEUT% 49.9 % (42-76); RED BLOOD COUNT 4.45 mill/uL (4.20-5.60); RED CELL DISTRI WIDTH 16.3 % (11.5-15.5)
[2022-05-27 19:19] LABS: URINE BILIRUBIN - DIPSTICK NEGATIVE (NEGATIVE); URINE BLOOD DIPSTICK NEGATIVE (NEGATIVE); URINE COLOR YELLOW; URINE GLUCOSE - DIPSTICK >=1000 mg/dL (NEGATIVE); URINE KETONE NEGATIVE (NEGATIVE); URINE LEUK ESTERASE NEGATIVE (NEGATIVE); URINE PH 5.5 (4.5-8.0); URINE PROTEIN - DIPSTICK NEGATIVE (NEG-TRACE); URINE SPECIFIC GRAVITY 1.015; URINE UROBILINOGEN - DIPSTICK 0.2 E.U./dL (0.2)
[2022-05-27 19:20] LABS: URINE NITRITE - DIPSTICK NEGATIVE (Negative)
[2022-05-27 19:26] LABS: CREATININE 1.9 mg/dL (0.5-1.0); TOTAL PROTEIN 8.4 g/dL (6.3-8.2)
[2022-05-27 19:28] LABS: POTASSIUM 3.5 mmol/l (3.5-5.1)
[2022-05-27 19:29] LABS: BILIRUBIN, TOTAL 0.1 mg/dL (0.02-1.3)
[2022-05-27] MEDS ORDERED: LORTAB 7.57.5 MG PO (21:14)
[2022-05-27] MEDS ORDERED: ONDANSETRON4 MG PO (21:14)
[2022-05-28] VITALS (15 sets, daily range): BP systolic 113–138; BP diastolic 69–101
== END 2022-05-27 22:00 | disposition home or self-care (01) | DRG 392 ==
LOC: ED 16:56
PROVIDERS: Nurse Practitioner
DX: R10.9 Unspecified abdominal pain (principal); K46.9 Unspecified abdominal hernia without obstruction or gangrene; I25.2 Old myocardial infarction; Z95.5 Presence of coronary angioplasty implant and graft; I10 Essential (primary) hypertension

== ENCOUNTER 2022-10-20 07:38 | Observation (INO) | payer OTHER, MEDICARE ==
[~2022-10-20] VITALS: Ht 167.6 cm; Wt 137.6 kg
[2022-10-20] VITALS (7 sets, daily range): BP systolic 94–131; BP diastolic 44–63
[~2022-10-20 07:38] MED LIST changes: +ASPIRIN 81 LOW81 MG PO; +BISOPROLOL FUMA10 MG PO; +FUROSEMIDE20 MG PO; +LORTAB 7.57.5 MG PO; +MOUNJARO; +NEURONTIN800 MG PO; +ONDANSETRON4 MG PO; +POTASSIUM CHLO10 MEQ PO; +TUMERIC; +VENLAFAXINE150 M1 PO; +[UNRECOGNIZED DRUG - OTHER]
[2022-10-20 14:51] LABS: CREATININE 1.6 mg/dL (0.5-1.0)
[2022-10-20 15:07] LABS: POTASSIUM 4.5 mmol/l (3.5-5.1)
--- NOTE | 2022-10-20 16:00 | NUR ---
PT REPORT PROVIDED BY LEAVING RN . ARRIVED TIME FRAME 1320.PT A/OX3 PT ABLE TO AMBULATE TO BSC. IV SITE NOTED WITH FLUIDS INFUSING. RESPIRATIONS ON 2LNC HEART RATE NORM NO MONITOR. DRESSINGS NOT CDI TO LOWER ABD AND PORT SITES NOTED. AHMET DRAINING NOTED. RED FLUID NOTED. PT MEDICATED PER EMAR TIME FRAME IN EMAR PT EDUCATED ON MEDICATIONS DUE AFTER DILUADID AND ZOFRAN PROVIDED PER EMAR. 1HR WAIT FOR NEXT PAIN MEDICATION PT STATED UNDERSTANDING. PT DENIES ADDITIONAL NEEDS AT THE TIME ALL SAFETY PRECAUTIONS IN PLACE WITH CALL LIGHT IN REACH.
--- NOTE | 2022-10-20 17:19 | NUR ---
DILAUDID GIVEN AT 1515,VERIFIED BY PHARMACIST FIRST. TORADOL VERFIED AFTER STATED SCHEDULED AT 1530. TORADOL THEN GIVEN 1HR LATER PT AWARE. TORADOL DUE AT 1800. WILL REPORT TO NIGHT NURSE 1HR BEHIND ON MEDICATION SCHEDULED.
--- NOTE | 2022-10-20 20:00 | NUR ---
PATIENT RESTING IN BED AT THIS TIME-AWAKE ALERT AND ORIENTEDX3. O2 VIA NASAL CANNULA IN PLACE WITH O2 SAT OF 97% AT THIS TIME. VS TAKEN AND RECORDED. PATIENT TAKING PO FLUIDS AND TOLERATING WELL AT THIS TIME. IVF NS PATENT AND INFUSING VIA RIGHT HAND SITE AT 125CC/HR. SITE IS HEALTH Y WITH GOOD BLOOD RETURN AT THIS TIME, AHMET DRAIN INTACT AND DRAINING BLOODY FLUID. SCD'S IN PLACE. PATIENT STATES THAT SHE HAS BEEN UP TO THE BR TO VOID. PATIENT WAS INSTRUCTED TO CALL FOR ASSIST WHEN GETTING OOB TO GO TO THE BR. NOT ONLY HAS SEE BEEN MEDICTED BUT WE ALSO NEED TO DO STRICT I&O ON FLUIDS. VERBALIZES UNDERSTANDING. SAFETY PRECAUTIONS REINFORCED. CALL LIGHT IN REACH. WILL CONT TO MONITOR.
--- NOTE | 2022-10-20 22:00 | NUR ---
PATIENT ASSISTED OOB TO THER RECLINER-MEDICATED FOR POST-OP PAIN WITH DILAUDID 1MG IVP VIA RIGHT HAND IV SITE. GLUCOSE CHECK WAS 245-COVERED WITH HUMALOG 2UNITS PER HUMALOG SS COVERAGE PROTOCOL. PROVIDED WITH HS SNACK. IVF PATENT AND INFUSING AT 125CC/HR VIA RIGHT HAND SITE. O2 VIA NASAL CANNULA IN PLACE. VOIDED 200CC OF YELLOW URINE IN BR. CALL LIGHT IN REACH. WILL CONT TO MONITOR.
--- NOTE | 2022-10-20 23:30 | NUR ---
PATIENT RESTING BACK IN BED AND C/O SEVERE PAIN A=GAIN-MEDICATED WITH SCHEDULED TORADOL ORDERED FOR 8/10 PAIN SCALE. POSITIONED ON RIGHT SIDE. CALL LIGHT IN REACH. WILL CONT TO MONITOR.
[2022-10-21] VITALS (10 sets, daily range): BP systolic 100–175; BP diastolic 37–74
--- NOTE | 2022-10-21 00:55 | NUR ---
PATIENT RESTING IN BED. STILL HAVING SEVERE ABD PAIN-9/10 ON PAIN SCALE. MEDICATED WITH DILAUDID 1MG IVP ORDERED FOR SEVERE PAIN. AHMET DRAIN TO LEFT ABD DRAINED FOR 30CC OF BLOODY FLUID. IVF NS PATENT AND INFUSING ORDERED VIA RIGHT HAND SITE. CLINDAMYCIN HUNG ORDERED. ABD DRESSING IN PLACE. CALL LIGHT IN REACH. WILL CONT TO MONITOR.
--- NOTE | 2022-10-21 04:10 | NUR ---
PATIENT SITTING ON THE SIDE OF THE BED. C/O POST-OP PAIN AND ITCHING. MEDICATED WITH BENEDRYL 50MG PO FOR ITCHING AND WITH DILAUDID 1MG IVP ORDERED FOR 10/10 POST-OP PAIN. CALL LIGHT IN REACH. WILL CONT TO MONITOR.
[2022-10-21 05:51] LABS: BASO% 0.2 % (0-3); EOS% 2.8 % (0-8); HEMATOCRIT 34.1 % (37.0-47.0); HEMOGLOBIN 10.1 g/dl (12.0-16.0); MEAN CELL VOLUME 93.4 fL CALC (80.0-100.0); MEAN CORPUSCULAR HGB 27.7 pG CALC (26.0-32.0); MEAN CORPUSCULAR HGB CONC 29.6 g/dL CAL (32.0-36.0); MONO% 7.1 % (2-13); NEUT# 8.41 thou/uL (2.00-7.15); NEUT% 59.9 % (42-76); RED BLOOD COUNT 3.65 mill/uL (4.20-5.60); RED CELL DISTRI WIDTH 16.4 % (11.5-15.5)
--- NOTE | 2022-10-21 06:00 | NUR ---
RESTING IN BED-AHMET DRAIN EMPTIED FOR ANOTHER 30CC OF BLOODY DRAINAGE. ABD DRESSING INTACT. CONT TO VOID IN BR-200CC OF YELLOW URINE. IVF PATENT AND INFUSING VIA RIGHT HAND SITE AT 125CC/HR. TORADOL GIVEN ORDERED. CALL LIGHT IN REACH. WILL CONT TO MONITOR.
[2022-10-21 06:23] LABS: ALBUMIN 3.2 g/dL (3.2-5.0); CREATININE 2.2 mg/dL (0.5-1.0); POTASSIUM 4.4 mmol/l (3.5-5.1); TOTAL PROTEIN 7.1 g/dL (6.3-8.2)
[2022-10-21 06:35] LABS: BILIRUBIN, TOTAL 0.5 mg/dL (0.02-1.3)
--- NOTE | 2022-10-21 07:15 | NUR ---
PERFROMED BEDSIDE REPORT WITH NIGHTSHIFT NURSE. PT NOTED LAYING SEMI FOWELRS IN BED, RESTING COMFORTABLY AT THIS TIME. PT DOES HAVE ON 2L O2 NASAL CANNULA, REQUIRED FOR SLEEPING DUE TO PT HX OF SLEEP APNEA. NO S/S OF DISTRESS AT THIS TIME. CALL LIGHT WITHIN REACH AND SAFETY PRECAUTIONS IN PLACE.
--- NOTE | 2022-10-21 12:00 | NUR ---
PT ATE LUNCH AND TOLERATED WELL. IS HAVING ACTIVE BOWEL SOUNDS. PT PAIN IS TOLERABLE AT THIS TIME, STATES "IM REAL SORE" EDUCATED PT ON POST OFF RECOVERY. PT DID AMBULATE THROUGH OUT HALLWAYS, STEADY GAIT. AHMET DRAIN NOTED WITH MINOR RED OUTPUT. DRESSINGS AT THIS TIME ARE DRY AND INTACT. PT SITTING UP IN CHAIR, VISITOR IN RM. CALL LIGHT WITHIN REACH AND SAFETY PRECAUTIONS IN PLACE.
--- NOTE | 2022-10-21 15:30 | NUR ---
CHANGED PT DRESSING TO LOWER PELVIC/ABD AREA. SURGICAL INCISION APPEARS HEALTHY, INTACT, AND 19 GOSIA PRESENT. CLEANED AREA WITH NORMAL SALINE AND APPLIED NEW ABD PADS. PT TOLERATED DSG CHANGE WELL. EMPTIED AHMET DRAIN, 35ML OF RED OUTPUT NOTED. PT LAYING SEMI FOWELRS IN BED, RESTING COMFORTABLY AT THIS TIME. CALL LIGHT WITHIN REACH AND SAFETY PRECAUTIONS IN PLACE.
[2022-10-21] MEDS ORDERED: VITAMIN D31000 UNI1 PO (19:10)
[2022-10-21] MEDS ORDERED: PLAVIX75 MG PO (19:15)
[2022-10-21] MEDS ORDERED: AMBIEN10 MG PO (19:18)
[2022-10-21] MEDS ORDERED: NITROSTAT0.4 MG SL (19:21)
--- NOTE | 2022-10-21 20:57 | NUR ---
Pt is ambulating up and down the hallway.
[2022-10-22 02:00] VITALS: BP 122/48
[2022-10-22 05:35] VITALS: BP 173/93
[2022-10-22 06:11] VITALS: BP 185/90
--- NOTE | 2022-10-22 07:10 | NUR ---
PT RESTING IN SEMI FOWLERS POSITION. A/OX3 PT C/O PAIN TO BE MEDICATED PER EMAR. RESPIRATIONS ON ROOM AIR. IV SITE NOTED. BP TO BE REASSESSED. PT DRESSING CDI.AHMET DRAIN NOTED. PT STATED WOULD LIKE TO SPEAK WITH PROVIDER. PT DENIES ADDITIONAL NEEDS AT THE TIME ALL SAFETY PRECAUTIONS IN PLACE WITH CALL LIGHT IN REACH.
[2022-10-22 08:46] LABS: BASO% 0.2 % (0-3); EOS% 3.5 % (0-8); HEMATOCRIT 36.1 % (37.0-47.0); HEMOGLOBIN 10.9 g/dl (12.0-16.0); IMMATURE GRANULOCYTES 0.7 % (0.0-5.0); MEAN CELL VOLUME 91.4 fL CALC (80.0-100.0); MEAN CORPUSCULAR HGB 27.6 pG CALC (26.0-32.0); MEAN CORPUSCULAR HGB CONC 30.2 g/dL CAL (32.0-36.0); NEUT# 7.95 thou/uL (2.00-7.15); NEUT% 61.6 % (42-76); RED BLOOD COUNT 3.95 mill/uL (4.20-5.60); RED CELL DISTRI WIDTH 15.9 % (11.5-15.5)
[2022-10-22 08:48] VITALS: BP 142/63
[2022-10-22 08:50] LABS: CREATININE 1.5 mg/dL (0.5-1.0); POTASSIUM 4.4 mmol/l (3.5-5.1)
[2022-10-22] MEDS ORDERED: ASPIRINCHW 81MG PO (11:09)
[2022-10-22 11:43] VITALS: BP 158/83
[2022-10-22 11:44] VITALS: BP 158/83
--- NOTE | 2022-10-22 12:23 | NUR ---
PT PROVIDED WITH 1X DOSE OXYCODONE PER PROVIDER ORDER. PT ABD DRESSING COMPLETED. PT TOLERATED WELL ALL SAFETY PRECAUTIONS IN PLACE WITH CALL LIGHT IN REACH.
[2022-10-22] MEDS ORDERED: PERCOCET 5/321 COMBO PO (13:23)
[2022-10-22] MEDS ORDERED: BACTRIM DS1 TAB PO (13:24)
--- NOTE | 2022-10-22 14:29 | NUR ---
Discharge instructions given. Patient verbalizes understanding of same. Discharged in stable condition via Wheelchair to Home with staff. All belongings sent with pt. IV REMOVED PT EDUCATED ON WOUND CARE. WOUND COMPLETED 2X. AHMET DRAINAGE IN PLACE PT TO SEE OUT PT FOR REMOVAL PT EDUCATED ON AHMET DRAIN DRAINAGE AND SUCTION BULB IN PLACE.
== END 2022-10-22 14:29 | disposition home or self-care (01) | DRG 336 ==
LOC: ORM 07:38 → MS2 13:23
PROVIDERS: ADMIT Surgery; ATTEND Surgery
PROC: 0WUF4JZ Supplement Abdominal Wall with Synthetic Substitute, Percutaneous Endoscopic Approach (ICD-10-PCS; principal; 2022-10-20)
PROC: 0DN80ZZ Release Small Intestine, Open Approach (ICD-10-PCS; 2022-10-20)
DX: K43.2 Incisional hernia without obstruction or gangrene (principal); I13.0 Hypertensive heart and chronic kidney disease with heart failure and stage 1 through stage 4 chronic kidney disease, or unspecified chronic kidney disease; N17.9 Acute kidney failure, unspecified; E11.22 Type 2 diabetes mellitus with diabetic chronic kidney disease; N18.9 Chronic kidney disease, unspecified; I50.9 Heart failure, unspecified; E13.69 Other specified diabetes mellitus with other specified complication; E78.5 Hyperlipidemia, unspecified; G47.33 Obstructive sleep apnea (adult) (pediatric); F32.A Depression, unspecified; E66.01 Morbid (severe) obesity due to excess calories; I25.2 Old myocardial infarction; Z95.5 Presence of coronary angioplasty implant and graft; Z90.710 Acquired absence of both cervix and uterus; Z79.4 Long term (current) use of insulin
CPT/HCPCS: J0131

== ENCOUNTER 2023-04-10 15:09 | Emergency (ER) | payer OTHER, MEDICARE ==
[~2023-04-10] VITALS: Ht 167.6 cm; Wt 135.0 kg
[2023-04-10] VITALS (69 sets, daily range): BP systolic 89–164; BP diastolic 45–108
[~2023-04-10 15:09] MED LIST changes: +AMBIEN10 MG PO; +ASPIRINCHW 81MG PO; +NITROSTAT0.4 MG SL; +PERCOCET 5/321 COMBO PO; +PLAVIX75 MG PO; +VITAMIN D31000 UNI1 PO
[2023-04-10 15:56] LABS: BASO% 0.1 % (0-3); EOS% 1.5 % (0-8); HEMATOCRIT 37.5 % (37.0-47.0); HEMOGLOBIN 11.7 g/dl (12.0-16.0); IMMATURE GRANULOCYTES 0.9 % (0.0-5.0); LYMPH% 41.8 % (15-41); MEAN CELL VOLUME 88.7 fL CALC (80.0-100.0); MEAN CORPUSCULAR HGB 27.7 pG CALC (26.0-32.0); MEAN CORPUSCULAR HGB CONC 31.2 g/dL CAL (32.0-36.0); MONO% 4.5 % (2-13); NEUT# 7.78 thou/uL (2.00-7.15); NEUT% 51.2 % (42-76); RED BLOOD COUNT 4.23 mill/uL (4.20-5.60); RED CELL DISTRI WIDTH 15.8 % (11.5-15.5)
[2023-04-10 16:06] LABS: D-DIMER 1.29 mg/L (0.19-0.60)
[2023-04-10 16:08] LABS: ALBUMIN 4.2 g/dL (3.2-5.0); ALKALINE PHOSPHATASE 193 u/l (38-126); AMYLASE 99 u/l (30-110); ANION GAP 13 (6-22 (CALC)); BILIRUBIN, TOTAL 0.5 mg/dL (0.02-1.3); BUN 52 mg/dL (7-17); BUN/CREATININE RATIO 29 (12-20 (CALC)); CARBON DIOXIDE 28 mmol/l (22-30); CHLORIDE 96 mmol/l (95-108); CREATININE 1.8 mg/dL (0.5-1.0); GFR FOR AFR.AMER. 36 ML/MIN (>=60 (CALC)); GFR OTHER RACES 30 ML/MIN (>=60 (CALC)); LIPASE 121 u/l (23-300); POTASSIUM 3.9 mmol/l (3.5-5.1); SGOT/AST 31 u/l (14-36); SODIUM 133 mmol/l (137-146); TOTAL PROTEIN 8.7 g/dL (6.3-8.2)
[2023-04-10 16:09] LABS: PROTHROMBIN TIME 9.7 SECONDS (9.0-12.5)
[2023-04-10 17:59] LABS: URINE BILIRUBIN - DIPSTICK Negative (NEGATIVE); URINE BLOOD DIPSTICK Negative (NEGATIVE); URINE GLUCOSE - DIPSTICK 500 mg/dL (NEGATIVE); URINE KETONE Negative (NEGATIVE); URINE LEUK ESTERASE Negative (NEGATIVE); URINE NITRITE - DIPSTICK Negative (Negative); URINE PH 5.5 (4.5-8.0); URINE PROTEIN - DIPSTICK Negative (NEG-TRACE); URINE UROBILINOGEN - DIPSTICK 0.2 E.U./dL (0.2)
[2023-04-10 18:01] LABS: URINE COLOR Yellow
== END 2023-04-10 22:53 | disposition short-term general hospital (02) | DRG 313 ==
LOC: ED 15:09
PROVIDERS: Nurse Practitioner Family
DX: R07.9 Chest pain, unspecified (principal); R79.89 Other specified abnormal findings of blood chemistry; I10 Essential (primary) hypertension; E11.9 Type 2 diabetes mellitus without complications; E78.5 Hyperlipidemia, unspecified; F41.9 Anxiety disorder, unspecified; E66.01 Morbid (severe) obesity due to excess calories; F32.A Depression, unspecified; I25.2 Old myocardial infarction; Z95.5 Presence of coronary angioplasty implant and graft; Z79.4 Long term (current) use of insulin